=== PATIENT | male | born 1985 | race Caucasian/White ===

== ENCOUNTER → 2017-09-11 | Outpatient (CLI) | payer OTHER | END | disposition home or self-care (01) | LOC: C.LAB 13:12 | PROVIDERS: ATTEND Specialist | DX: N46.9 Male infertility, unspecified (principal) ==

== ENCOUNTER → 2017-10-08 | Outpatient (CLI) | payer OTHER ==
[2017-10-08 14:25] LABS: HEP C IGG 13 YRS+OLDER_RFLX NEG (NEG)
== END | disposition home or self-care (01) ==
LOC: C.LAB 10:29
PROVIDERS: ATTEND Obstetrics & Gynecology Reproductive Endocrinology
DX: Z11.3 Encounter for screening for infections with a predominantly sexual mode of transmission (principal); Z11.4 Encounter for screening for human immunodeficiency virus [HIV]; Z11.59 Encounter for screening for other viral diseases

== ENCOUNTER → 2017-12-05 | Outpatient (CLI) | payer OTHER | END | disposition home or self-care (01) | LOC: C.LAB 11:49 | PROVIDERS: ATTEND Nurse Practitioner Family | DX: R86.8 Other abnormal findings in specimens from male genital organs (principal) ==

== ENCOUNTER → 2018-03-20 | Outpatient (CLI) | payer OTHER ==
[~2018-03-20] MED LIST: OPTIRAY 320 IV PRN
--- NOTE | 2018-03-20 13:02 | DIAGNOSTIC IMAGING REPORT ---
ABD/PELVIS COMBO CLINICAL HISTORY: 32 years-old Male presenting with N50.819 Testicular pain N50.82 Acute pain in scrotum. TECHNIQUE: Multidetector CT of the abdomen and pelvis was performed before and after the administration of intravenous contrast. IV contrast: 80 mL of Optiray 320. A dose lowering technique was used consistent with the principles of ALARA (as low as reasonably achievable). COMPARISON: Scrotal ultrasound from 03/05/2018. CT DOSE (mGy.cm): The estimated cumulative dose is 766.31 mGy.cm. FINDINGS: Change Person topogram: Unremarkable. Lung bases: Lungs and pleural spaces clear. Normal heart size. No pericardial or pleural effusion. Liver: Normal morphology. No liver lesion. Patent hepatic vasculature. Biliary: No intrahepatic or extrahepatic biliary ductal dilatation. Normal gallbladder. Pancreas: Normal. Spleen: Normal. Adrenal glands: Normal. Kidneys and ureters: The left kidney is absent. 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 The right kidney may exaggerated compensatory hypertrophy. Mild pelvocaliectasis. No nephrolithiasis. Right ureter nondilated. No evidence of a left ureter. Bladder: Incompletely evaluated secondary to underdistention. Pelvic organs: Prostate and seminal vesicles normal. No evidence of a varicocele. No gross evidence of a seminal vesicle cyst. The scrotum is not included within the [id number]. Bowel: Normal appendix. No bowel obstruction. Peritoneal cavity: No free fluid or intraperitoneal gas. Lymph nodes: No enlarged lymph nodes in the abdomen or pelvis. Vasculature: Aorta and IVC patent and normal in caliber. Abdominal wall: Small fat-containing umbilical hernia. Musculoskeletal: Normal. IMPRESSION: 1. Absent left kidney. This may be on a congenital basis. 2. No acute intra-abdominal pathology. No nephrolithiasis. Electronically signed by: Carl Grewal M.D. 03/20/2018 1:01 PM Dictated Date/Time: 03/20/2018 12:55 PM
== END | disposition home or self-care (01) ==
LOC: C.CTS 11:36
PROVIDERS: ATTEND Urology
DX: N50.82 Scrotal pain (principal); N50.819 Testicular pain, unspecified

== ENCOUNTER → 2018-04-11 | Outpatient (CLI) | payer OTHER | END | disposition home or self-care (01) | LOC: C.LAB 13:43 | PROVIDERS: ATTEND Obstetrics & Gynecology | DX: Z31.440 Encounter of male for testing for genetic disease carrier status for procreative management (principal) ==